=== PATIENT | female | born 1975 | race Caucasian/White ===

== ENCOUNTER 2021-11-05 23:04 | Inpatient (IN) | payer OTHER ==
[~2021-11-05] VITALS: Ht 165.1 cm; Wt 77.3 kg
[2021-11-05] MEDS ORDERED: TOPI100T37 PO (23:53)
[2021-11-05] MEDS ORDERED: NALT380S2 IM (23:53)
[2021-11-05] MEDS ORDERED: LISI20TA24 PO (23:53)
[2021-11-05] MEDS ORDERED: HYDR25TA PO (23:53)
[2021-11-06] MEDS ORDERED: 0.9% SODIUM CHLORIDE 10 ML SYRINGE IVP PRN
[2021-11-06 00:23] LABS: COVID AG,FIA SOURCE NASOPHARYNGEAL
[2021-11-06] MEDS ORDERED: PERMETHRIN 5% 60 GM CREAM TP ONE (01:45)
[2021-11-06 02:38] LABS: BASOPHILS % (AUTO) 0.8 % (0.0-2.0); EOSINOPHILS % (AUTO) 0.9 % (1.0-6.0); HEMOGLOBIN 12.7 g/dL (12.0-16.0); LYMPHOCYTES # (AUTO) 0.5 K/uL (1.0-4.8); MEAN CORPUSCULAR HEMOGLOBIN 30.2 pg (26.0-34.0); MEAN CORPUSCULAR HGB CONC 34.3 G/dL (31.0-37.0); MEAN CORPUSCULAR VOLUME 88 fL (80-100); MONOCYTES # (AUTO) 0.3 K/uL (0.1-1.0); MONOCYTES % (AUTO) 6.3 % (2.0-9.0); PLATELET COUNT (AUTO) 266 K/uL (150-450); RED BLOOD CELL COUNT(AUTO) 4.21 MIL/uL (4.00-5.20); RED CELL DISTRIBUTION WIDTH 16.8 % (11.5-14.5)
[2021-11-06 02:41] LABS: SALICYLATE 3.8 mg/dL (2.8-20.0)
[2021-11-06 02:47] LABS: AMPHET/METH SCREEN,URINE POSITIVE (NEGATIVE); BARBITURATE SCREEN, URINE NEGATIVE (NEGATIVE); BENZODIAZEPINES SCREEN,URINE NEGATIVE (NEGATIVE); CANNABINOID SCREEN,URINE NEGATIVE (NEGATIVE); COCAINE SCREEN,URINE NEGATIVE (NEGATIVE); METHADONE SCREEN, URINE NEGATIVE (NEGATIVE); OPIATE SCREEN,URINE NEGATIVE (NEGATIVE)
[2021-11-06 02:51] LABS: ANION GAP 7 mmol/L (8-16); CALCIUM, TOTAL 9.4 mg/dL (8.8-10.5); CARBON DIOXIDE 30 mmol/L (22-29); CHLORIDE 100 mmol/L (98-107); CREATININE 2.04 mg/dL (0.60-1.30); GLOMERULAR FILTR. RATE CALC 26 mL/min (>60); GLUCOSE,RANDOM 96 mg/dL (70-110); SODIUM SERUM 137 mmol/L (136-145); UREA NITROGEN, BLOOD 41 mg/dL (7-18)
[2021-11-06 02:53] LABS: PHENCYCLIDINE SCREEN,URINE NEGATIVE (NEGATIVE)
[2021-11-06 03:02] LABS: ALANINE AMINOTRANSFERASE 27 U/L (12-78); ALBUMIN 3.5 g/dL (3.4-5.0); ALKALINE PHOSPHATASE 64 U/L (46-116); ASPARTATE AMINOTRANSFERASE 23 U/L (15-37); BILIRUBIN,TOTAL 0.3 mg/dL (0.1-1.0); HCG,QUANTITATIVE < 1 mIU/mL (0-6); TOTAL PROTEIN, SERUM 8.2 g/dL (6.4-8.2)
[2021-11-06 03:03] LABS: ACETAMINOPHEN < 2 mcg/mL (10-30)
[2021-11-06] MEDS ORDERED: POTASSIUM CHLORIDE 20 MEQ ER TABLET PO ONE (05:15)
[2021-11-06] MEDS ORDERED: SODIUM CHLORIDE 0.9% 1,000 ML IV ONE ×2 (05:15→08:00)
[2021-11-06 07:39] LABS: BASOPHILS % (AUTO) 0.8 % (0.0-2.0); EOSINOPHILS % (AUTO) 1.6 % (1.0-6.0); HEMATOCRIT 37.3 % (36-46); HEMOGLOBIN 12.7 g/dL (12.0-16.0); LYMPHOCYTES # (AUTO) 1.1 K/uL (1.0-4.8); LYMPHOCYTES % (AUTO) 28.3 % (22.0-44.0); MEAN CORPUSCULAR HEMOGLOBIN 29.8 pg (26.0-34.0); MEAN CORPUSCULAR VOLUME 88 fL (80-100); MONOCYTES # (AUTO) 0.4 K/uL (0.1-1.0); MONOCYTES % (AUTO) 9.9 % (2.0-9.0); NEUTROPHILS # (AUTO) 2.3 K/uL (1.8-7.7); NEUTROPHILS % (AUTO) 59.4 % (40.0-70.0); RED BLOOD CELL COUNT(AUTO) 4.26 MIL/uL (4.00-5.20); RED CELL DISTRIBUTION WIDTH 16.5 % (11.5-14.5)
[2021-11-06 07:57] LABS: ALBUMIN 3.1 g/dL (3.4-5.0); BILIRUBIN,TOTAL 0.3 mg/dL (0.1-1.0); CALCIUM, TOTAL 9.1 mg/dL (8.8-10.5); CREATININE 1.53 mg/dL (0.60-1.30); POTASSIUM 3.6 mmol/L (3.5-5.1); TOTAL PROTEIN, SERUM 7.5 g/dL (6.4-8.2)
[2021-11-06] MEDS ORDERED: ZOLPIDEM TARTRATE 5 MG TABLET PO PRN (08:00)
[2021-11-06] MEDS ORDERED: MAGNESIUM HYDROXIDE SUSPENSION 30 ML UDCUP PO PRN (08:00)
[2021-11-06] MEDS ORDERED: ONDANSETRON HCL 4 MG/2 ML VIAL IVP PRN (08:00)
[2021-11-06 09:04] LABS: PLATELET COUNT (AUTO) 186 K/uL (150-450)
[2021-11-06 10:20] VITALS: BP 97/62
[2021-11-06] MEDS: FAMOTIDINE 20 MG TABLET PO SCH ×2 (11:04→20:10)
[2021-11-06] MEDS ORDERED: INFLUENZA VIRUS VACCINE QVS 2021-22 (6MO+)/PF 60 MCG/0.5 ML SYRINGE IM. ONE (14:45)
[2021-11-06 16:35] VITALS: BP 109/69
[2021-11-06 21:15] VITALS: BP 117/82
[2021-11-07 05:20] VITALS: BP 118/72
[2021-11-07 08:12] VITALS: BP 123/63
[2021-11-07] MEDS: FAMOTIDINE 20 MG TABLET PO SCH ×2 (08:34→20:43)
[2021-11-07] MEDS: LORazepam 1 MG TABLET PO PRN ×2 (08:34→20:43)
[2021-11-07] MEDS ORDERED: SODIUM CHLORIDE 0.9% 1,000 ML IV ONE (11:30)
[2021-11-07 15:21] VITALS: BP 106/55
[2021-11-07 20:19] VITALS: BP 114/65
[2021-11-08 05:08] VITALS: BP 114/76
[2021-11-08] MEDS: FAMOTIDINE 20 MG TABLET PO SCH ×2 (07:28→20:37)
[2021-11-08 08:10] VITALS: BP 117/68
[2021-11-08 11:11] LABS: ANION GAP 10 mmol/L (8-16); CARBON DIOXIDE 31 mmol/L (22-29); CHLORIDE 106 mmol/L (98-107); CREATININE 0.97 mg/dL (0.60-1.30); GLOMERULAR FILTR. RATE CALC > 60 mL/min (>60); GLUCOSE,RANDOM 96 mg/dL (70-110); POTASSIUM 4.1 mmol/L (3.5-5.1); SODIUM SERUM 147 mmol/L (136-145); UREA NITROGEN, BLOOD 19 mg/dL (7-18)
[2021-11-08 16:41] VITALS: BP 143/91
[2021-11-08 19:50] VITALS: BP 116/73
[2021-11-09] MEDS: ACETAMINOPHEN 325 MG TABLET PO PRN ×2 (02:53→08:26)
[2021-11-09 05:29] VITALS: BP 110/62
[2021-11-09 07:58] VITALS: BP 117/72
[2021-11-09] MEDS: FAMOTIDINE 20 MG TABLET PO SCH ×2 (08:26→09:00)
[2021-11-09] MEDS ORDERED: DENTURE ADHESIVE 68 GM CREAM DT PRN (11:15)
[2021-11-09] MEDS ORDERED: FAMO20 PO (11:25)
[2021-11-09] MEDS ORDERED: ACET-2247 PO (11:25)
== END 2021-11-09 19:09 | DRG 897 ==
LOC: EMS 23:07 → 5S 11-06 06:00 → 6S 11-06 15:00
PROVIDERS: ADMIT Internal Medicine; ATTEND Internal Medicine
DX: F11.23 Opioid dependence with withdrawal (principal); N17.9 Acute kidney failure, unspecified; F15.23 Other stimulant dependence with withdrawal; B19.20 Unspecified viral hepatitis C without hepatic coma; I10 Essential (primary) hypertension; F17.200 Nicotine dependence, unspecified, uncomplicated; Z20.822 Contact with and (suspected) exposure to COVID-19; E87.6 Hypokalemia; Z71.6 Tobacco abuse counseling; Y92.89 Other specified places as the place of occurrence of the external cause; Z79.899 Other long term (current) drug therapy
CPT/HCPCS: 71045; 80048; 80053; 84484; 84702; 85025; 93005; 99285; G0480; G0481; J7030; 36415-L1; 36415-TC

== ENCOUNTER 2022-05-10 06:18 | Inpatient (IN) | payer OTHER ==
[~2022-05-10] VITALS: Ht 165.1 cm; Wt 72.7 kg
[~2022-05-10 06:18] MED LIST: ACET-2247 PO; FAMO20 PO
[2022-05-10] MEDS ORDERED: IBUPROFEN 600 MG TABLET PO ONE (06:30)
[2022-05-10] MEDS ORDERED: ACETAMINOPHEN 325 MG TABLET PO ONE (06:30)
[2022-05-10] MEDS ORDERED: ONDANSETRON HCL 4 MG TABLET PO ONE (06:30)
[2022-05-10 07:27] LABS: BASOPHILS % (AUTO) 0.7 % (0.0-2.0); EOSINOPHILS % (AUTO) 0.1 % (1.0-6.0); HEMATOCRIT 36.3 % (36-46); HEMOGLOBIN 11.9 g/dL (12.0-16.0); LYMPHOCYTES % (AUTO) 20.3 % (22.0-44.0); MEAN CORPUSCULAR HEMOGLOBIN 27.7 pg (26.0-34.0); MEAN CORPUSCULAR HGB CONC 32.7 G/dL (31.0-37.0); MEAN CORPUSCULAR VOLUME 85 fL (80-100); MONOCYTES # (AUTO) 0.2 K/uL (0.1-1.0); MONOCYTES % (AUTO) 4.7 % (2.0-9.0); NEUTROPHILS # (AUTO) 3.5 K/uL (1.8-7.7); NEUTROPHILS % (AUTO) 74.2 % (40.0-70.0); PLATELET COUNT (AUTO) 191 K/uL (150-450); RED CELL DISTRIBUTION WIDTH 14.6 % (11.5-14.5)
[2022-05-10 07:28] LABS: COVID AG,FIA SOURCE NASOPHARYNGEAL
[2022-05-10 07:36] LABS: ANION GAP 7 mmol/L (8-16); CARBON DIOXIDE 31 mmol/L (22-29); CHLORIDE 101 mmol/L (98-107); CREATININE 0.83 mg/dL (0.60-1.30); GLUCOSE,RANDOM 83 mg/dL (70-110); POTASSIUM 3.7 mmol/L (3.5-5.1); SODIUM SERUM 139 mmol/L (136-145); UREA NITROGEN, BLOOD 20 mg/dL (7-18)
[2022-05-10 07:37] LABS: GLOMERULAR FILTR. RATE CALC > 60 mL/min (>60)
[2022-05-10 07:48] LABS: ALANINE AMINOTRANSFERASE 16 U/L (12-78); ALBUMIN 2.7 g/dL (3.4-5.0); ALKALINE PHOSPHATASE 64 U/L (46-116); ASPARTATE AMINOTRANSFERASE 18 U/L (15-37); BILIRUBIN,TOTAL 0.2 mg/dL (0.1-1.0); HCG,QUANTITATIVE 1 mIU/mL (0-6); TOTAL PROTEIN, SERUM 6.4 g/dL (6.4-8.2)
[2022-05-10] MEDS ORDERED: ALBUTEROL SULFATE 2.5 MG/0.5 ML NEB SOLUTION NEB PRN (08:30)
[2022-05-10] MEDS ORDERED: BISACODYL 10 MG RECTAL RECTAL SUPPOSITORY PR PRN (08:30)
[2022-05-10] MEDS ORDERED: LORazepam 2 MG/ML VIAL IVP PRN (08:30)
[2022-05-10] MEDS ORDERED: 0.9% SODIUM CHLORIDE 10 ML SYRINGE IVP PRN ×2 (08:30)
[2022-05-10] MEDS ORDERED: IPRATROPIUM BROMIDE 0.5 MG/2.5 ML NEB SOLUTION NEB PRN (08:30)
[2022-05-10] MEDS ORDERED: ONDANSETRON HCL 4 MG/2 ML VIAL IVP PRN ×2 (08:30)
[2022-05-10] MEDS ORDERED: ACETAMINOPHEN 325 MG TABLET PO PRN (08:30)
[2022-05-10] MEDS: THIAMINE 100 MG TABLET PO SCH (08:40)
[2022-05-10] MEDS: MULTIVITAMINS, THERAPEUTIC TABLET PO SCH (08:40)
[2022-05-10] MEDS: FOLIC ACID 1 MG TABLET PO SCH (08:41)
[2022-05-10] MEDS: PANTOPRAZOLE SODIUM 40 MG DR TABLET PO SCH (08:41)
[2022-05-10] MEDS ORDERED: CloNIDine HCL 0.1 MG TABLET PO PRN (08:45)
[2022-05-10 15:43] VITALS: BP 116/71
[2022-05-10 19:50] VITALS: BP 123/76
[2022-05-11 04:15] VITALS: BP 122/75
[2022-05-11 08:19] VITALS: BP 122/80
[2022-05-11] MEDS: FOLIC ACID 1 MG TABLET PO SCH (08:29)
[2022-05-11] MEDS: PANTOPRAZOLE SODIUM 40 MG DR TABLET PO SCH (08:29)
[2022-05-11] MEDS: MULTIVITAMINS, THERAPEUTIC TABLET PO SCH (08:29)
[2022-05-11] MEDS: DOCUSATE SODIUM 100 MG CAPSULE PO PRN ×2 (08:29→08:35)
[2022-05-11] MEDS: ACETAMINOPHEN 325 MG TABLET PO PRN ×2 (10:02→14:04)
[2022-05-11] MEDS: THIAMINE 100 MG TABLET PO SCH (10:05)
[2022-05-11 11:03] LABS: BASOPHILS % (AUTO) 0.8 % (0.0-2.0); EOSINOPHILS % (AUTO) 0 % (1.0-6.0); HEMATOCRIT 34.8 % (36-46); HEMOGLOBIN 11.4 g/dL (12.0-16.0); LYMPHOCYTES # (AUTO) 0.7 K/uL (1.0-4.8); LYMPHOCYTES % (AUTO) 11.6 % (22.0-44.0); MEAN CORPUSCULAR HEMOGLOBIN 27.5 pg (26.0-34.0); MEAN CORPUSCULAR HGB CONC 32.9 G/dL (31.0-37.0); MEAN CORPUSCULAR VOLUME 84 fL (80-100); MONOCYTES # (AUTO) 0.2 K/uL (0.1-1.0); MONOCYTES % (AUTO) 3.9 % (2.0-9.0); NEUTROPHILS # (AUTO) 4.7 K/uL (1.8-7.7); NEUTROPHILS % (AUTO) 83.7 % (40.0-70.0); PLATELET COUNT (AUTO) 199 K/uL (150-450); RED BLOOD CELL COUNT(AUTO) 4.16 MIL/uL (4.00-5.20); RED CELL DISTRIBUTION WIDTH 14.2 % (11.5-14.5)
[2022-05-11 11:19] LABS: ALANINE AMINOTRANSFERASE 22 U/L (12-78); ALBUMIN 2.8 g/dL (3.4-5.0); ALKALINE PHOSPHATASE 62 U/L (46-116); ANION GAP 7 mmol/L (8-16); ASPARTATE AMINOTRANSFERASE 27 U/L (15-37); BILIRUBIN,TOTAL 0.3 mg/dL (0.1-1.0); CALCIUM, TOTAL 9.3 mg/dL (8.8-10.5); CARBON DIOXIDE 32 mmol/L (22-29); CHLORIDE 99 mmol/L (98-107); CREATININE 0.92 mg/dL (0.60-1.30); GLUCOSE,RANDOM 121 mg/dL (70-110); SODIUM SERUM 138 mmol/L (136-145); TOTAL PROTEIN, SERUM 6.8 g/dL (6.4-8.2); UREA NITROGEN, BLOOD 16 mg/dL (7-18)
[2022-05-11 11:20] LABS: GLOMERULAR FILTR. RATE CALC > 60 mL/min (>60)
[2022-05-11] MEDS: LORazepam 1 MG TABLET PO PRN (15:50)
[2022-05-11 16:55] VITALS: BP 130/61
[2022-05-11 19:40] VITALS: BP 137/76
[2022-05-11] MEDS ORDERED: KETOROLAC TROMETHAMINE 15 MG/ML VIAL IVP SCH (20:30)
[2022-05-12 04:10] VITALS: BP 141/87
[2022-05-12] MEDS: KETOROLAC TROMETHAMINE 15 MG/ML VIAL IVP PRN ×3 (05:15→20:32)
[2022-05-12] MEDS: THIAMINE 100 MG TABLET PO SCH (07:54)
[2022-05-12] MEDS: MULTIVITAMINS, THERAPEUTIC TABLET PO SCH (07:55)
[2022-05-12] MEDS: PANTOPRAZOLE SODIUM 40 MG DR TABLET PO SCH (07:55)
[2022-05-12] MEDS: FOLIC ACID 1 MG TABLET PO SCH (07:55)
[2022-05-12 08:25] VITALS: BP 136/85
[2022-05-12 08:44] LABS: BASOPHILS % (AUTO) 0.5 % (0.0-2.0); EOSINOPHILS % (AUTO) 0.1 % (1.0-6.0); HEMATOCRIT 36.8 % (36-46); HEMOGLOBIN 11.9 g/dL (12.0-16.0); LYMPHOCYTES # (AUTO) 0.8 K/uL (1.0-4.8); LYMPHOCYTES % (AUTO) 13.9 % (22.0-44.0); MEAN CORPUSCULAR HEMOGLOBIN 27.1 pg (26.0-34.0); MEAN CORPUSCULAR HGB CONC 32.4 G/dL (31.0-37.0); MEAN CORPUSCULAR VOLUME 84 fL (80-100); MONOCYTES # (AUTO) 0.3 K/uL (0.1-1.0); MONOCYTES % (AUTO) 4.6 % (2.0-9.0); NEUTROPHILS # (AUTO) 4.7 K/uL (1.8-7.7); NEUTROPHILS % (AUTO) 80.9 % (40.0-70.0); PLATELET COUNT (AUTO) 223 K/uL (150-450); RED CELL DISTRIBUTION WIDTH 14.4 % (11.5-14.5)
[2022-05-12 08:59] LABS: ALANINE AMINOTRANSFERASE 24 U/L (12-78); ALBUMIN 2.9 g/dL (3.4-5.0); ALKALINE PHOSPHATASE 66 U/L (46-116); ANION GAP 10 mmol/L (8-16); ASPARTATE AMINOTRANSFERASE 26 U/L (15-37); BILIRUBIN,TOTAL 0.3 mg/dL (0.1-1.0); CALCIUM, TOTAL 9.4 mg/dL (8.8-10.5); CARBON DIOXIDE 30 mmol/L (22-29); CHLORIDE 100 mmol/L (98-107); CREATININE 0.78 mg/dL (0.60-1.30); GLUCOSE,RANDOM 75 mg/dL (70-110); POTASSIUM 3.8 mmol/L (3.5-5.1); SODIUM SERUM 140 mmol/L (136-145); TOTAL PROTEIN, SERUM 7.3 g/dL (6.4-8.2); UREA NITROGEN, BLOOD 14 mg/dL (7-18)
[2022-05-12 09:01] LABS: GLOMERULAR FILTR. RATE CALC > 60 mL/min (>60)
[2022-05-12] MEDS: LORazepam 1 MG TABLET PO PRN ×2 (14:59→21:47)
[2022-05-12 16:43] VITALS: BP 130/84
[2022-05-12 20:15] VITALS: BP 138/87
[2022-05-12] MEDS: -LIDODERM PATCH NOTE- MISC SCH (21:00)
[2022-05-13] MEDS: KETOROLAC TROMETHAMINE 10 MG TABLET PO PRN ×3 (01:44→16:31)
[2022-05-13 04:35] VITALS: BP 130/82
[2022-05-13 08:20] VITALS: BP 133/93
[2022-05-13] MEDS: PANTOPRAZOLE SODIUM 40 MG DR TABLET PO SCH (09:37)
[2022-05-13] MEDS: THIAMINE 100 MG TABLET PO SCH (09:37)
[2022-05-13] MEDS: LORazepam 1 MG TABLET PO PRN ×3 (09:37→23:07)
[2022-05-13] MEDS: FOLIC ACID 1 MG TABLET PO SCH (09:37)
[2022-05-13] MEDS: MULTIVITAMINS, THERAPEUTIC TABLET PO SCH (09:37)
[2022-05-13] MEDS: LIDOCAINE 5% TRANSDERMAL PATCH TD SCH (09:41)
[2022-05-13 15:32] VITALS: BP 122/88
[2022-05-13 19:25] VITALS: BP 142/89
[2022-05-13] MEDS: -LIDODERM PATCH NOTE- MISC SCH (20:37)
[2022-05-13 22:29] LABS: AMPHET/METH SCREEN,URINE POSITIVE (NEGATIVE); BARBITURATE SCREEN, URINE NEGATIVE (NEGATIVE); BENZODIAZEPINES SCREEN,URINE NEGATIVE (NEGATIVE); CANNABINOID SCREEN,URINE NEGATIVE (NEGATIVE); COCAINE SCREEN,URINE NEGATIVE (NEGATIVE); METHADONE SCREEN, URINE POSITIVE (NEGATIVE); OPIATE SCREEN,URINE NEGATIVE (NEGATIVE); PHENCYCLIDINE SCREEN,URINE NEGATIVE (NEGATIVE)
[2022-05-14 05:05] VITALS: BP 113/72
[2022-05-14] MEDS: KETOROLAC TROMETHAMINE 10 MG TABLET PO PRN (05:06)
[2022-05-14] MEDS: LORazepam 1 MG TABLET PO PRN (05:07)
[2022-05-14 08:09] VITALS: BP 125/76
[2022-05-14] MEDS: FOLIC ACID 1 MG TABLET PO SCH (08:43)
[2022-05-14] MEDS: PANTOPRAZOLE SODIUM 40 MG DR TABLET PO SCH (08:43)
[2022-05-14] MEDS: THIAMINE 100 MG TABLET PO SCH (08:43)
[2022-05-14] MEDS: MULTIVITAMINS, THERAPEUTIC TABLET PO SCH (08:43)
[2022-05-14] MEDS: LIDOCAINE 5% TRANSDERMAL PATCH TD SCH (08:47)
[2022-05-14] MEDS ORDERED: ACETAMINOPHEN 325 MG TABLET PO PRN (12:45)
[2022-05-14] MEDS: ALPRAZolam 1 MG TABLET PO PRN ×2 (13:11→22:42)
[2022-05-14 16:05] VITALS: BP 129/78
[2022-05-14 19:47] VITALS: BP 119/82
[2022-05-14] MEDS: DENTURE ADHESIVE 68 GM CREAM DT PRN (22:46)
[2022-05-15] MEDS: MELATONIN 3 MG TABLET PO PRN (00:30)
[2022-05-15 03:47] VITALS: BP 117/77
[2022-05-15 08:06] LABS: HIV 1-2 SCREEN 4TH GEN W/RFLX Non Reactive (Non Reactive)
[2022-05-15 08:13] VITALS: BP 125/79
[2022-05-15] MEDS: FOLIC ACID 1 MG TABLET PO SCH (08:52)
[2022-05-15] MEDS: THIAMINE 100 MG TABLET PO SCH (08:52)
[2022-05-15] MEDS: PANTOPRAZOLE SODIUM 40 MG DR TABLET PO SCH (08:52)
[2022-05-15] MEDS: MULTIVITAMINS, THERAPEUTIC TABLET PO SCH (08:52)
[2022-05-15] MEDS: ALPRAZolam 1 MG TABLET PO PRN ×2 (08:56→22:07)
[2022-05-15 16:02] VITALS: BP 114/74
[2022-05-15] MEDS: ACETAMINOPHEN 325 MG TABLET PO PRN (16:51)
[2022-05-15 19:56] VITALS: BP 116/72
[2022-05-15] MEDS: TraZODone HCL 100 MG TABLET PO SCH (22:06)
[2022-05-16] MEDS: MELATONIN 3 MG TABLET PO PRN ×2 (00:03→20:15)
[2022-05-16] MEDS: ACETAMINOPHEN 325 MG TABLET PO PRN (00:04)
[2022-05-16] MEDS: MULTIVITAMINS, THERAPEUTIC TABLET PO SCH (09:17)
[2022-05-16] MEDS: PANTOPRAZOLE SODIUM 40 MG DR TABLET PO SCH (09:17)
[2022-05-16] MEDS: THIAMINE 100 MG TABLET PO SCH (09:17)
[2022-05-16] MEDS: FOLIC ACID 1 MG TABLET PO SCH (09:17)
[2022-05-16] MEDS ORDERED: TRAZ-186 PO (12:13)
[2022-05-16] MEDS: DENTURE ADHESIVE 68 GM CREAM DT PRN (12:58)
[2022-05-16 19:57] VITALS: BP 115/70
[2022-05-16] MEDS: TraZODone HCL 100 MG TABLET PO SCH (20:15)
== END 2022-05-16 21:40 | DRG 897 ==
LOC: EMS 06:20 → 6S 14:15
PROVIDERS: ADMIT Internal Medicine; ATTEND Internal Medicine
DX: F10.130 Alcohol abuse with withdrawal, uncomplicated (principal); F33.2 Major depressive disorder, recurrent severe without psychotic features; F15.23 Other stimulant dependence with withdrawal; F11.23 Opioid dependence with withdrawal; I11.9 Hypertensive heart disease without heart failure; G40.909 Epilepsy, unspecified, not intractable, without status epilepticus; Z20.822 Contact with and (suspected) exposure to COVID-19; F17.200 Nicotine dependence, unspecified, uncomplicated; F10.120 Alcohol abuse with intoxication, uncomplicated; G47.00 Insomnia, unspecified; F41.9 Anxiety disorder, unspecified; Z79.899 Other long term (current) drug therapy
CPT/HCPCS: 80053; 84702; 85025; 86631; 86632; 87389; 99285; G0480; J1885; J2405; Q0162